=== PATIENT | male | born 1990 | race Caucasian/White ===

== ENCOUNTER 2016-03-18 18:01 | Emergency (ER) | payer OTHER ==
--- NOTE | 2016-03-18 20:40 | ED ORDER SUMMARY ---
..... Patient: ALKA ATKINS OrderSheet [facility] VisitID: [id number] [address] [place] [address] 25y, M Registration Date/Time: 03/18/2016 ORDER SHEET Weight: 72.5 kg (stated) Allergies: No Known Drug Allergy GENERAL ORDERS: Hand 3 or 4V Right Urgent (19:43 03/18/2016 Kiana Mcguire per protocol) (19:55 [facility]) MEDICATION ORDERS: Bactrim DS PO (Tablet 800-160 mg) 2 tabs (NOW) (20:35 03/18/2016 Chantale COLES) (Cancelled: Other23:41 Nai Mcguire) IV FLUIDS: ORDER SHEET NOTES: [Electronically signed by Heladio Del Rosario R.N. (23:44 03/18/2016)] [Electronically signed by Home Clarke MD (08:56 03/23/2016)] [Electronically locked/signed by Heladio Del Rosario R.N. (23:44 03/18/2016)]
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
--- NOTE | 2016-03-18 20:40 | ED CLINICAL REPORT ---
Clinical Report - Physicians/Mid Levels [facility] [address] [place] [address] 03/18/2016 18:04 Patient: ALKA ATKINS Time Seen: 20:33. Arrived- By private vehicle. Historian- patient. HISTORY OF PRESENT ILLNESS Chief Complaint: Injury to the right hand. The injury happened yesterday. The patient sustained a severe direct blow. Occurred at home. ( he was working on a car and struck his hand against the inside of the wheel well when trying to turn around). Patient is experiencing severe pain. No other injury. REVIEW OF SYSTEMS No chills, fever, sweats, calf pain or chest pain. No cough, difficulty breathing, pedal edema, palpitations or abdominal pain. No constipation, diarrhea, nausea, vomiting or urinary problems. All systems otherwise negative, except as recorded above. PAST HISTORY The patient's dominant hand is the right. SOCIAL HISTORY Current every day heavy tobacco smoker (cigarette)- less than 1 pack per day. Occasional alcohol use. FAMILY HISTORY No significant family medical history. ADDITIONAL NOTES The nursing notes have been reviewed. PHYSICAL EXAM Vital Signs: 03/18/2016 19:37 BP: 141/91. HR: 96. RR: 16. O2 saturation: 100%. Temp: 98.2 F. Pain level now: 9/10. Have been reviewed. Appearance: Alert. No acute distress. Head: Head atraumatic. Eyes: Pupils equal, round and reactive to light. ENT: Pharynx normal. Neck: Neck supple. CVS: Heart sounds normal. Respiratory: Breath sounds normal. Abdomen: No visible injury. Back: Normal inspection. Skin: Skin warm and dry. Medium area of cellulitis with tenderness, erythema and warmth to right hand. Extremities: Dorsal right hand: mild erythema, moderate tenderness and swelling and multiple deep abrasions (R hand has x3 small 1cm deep abrasions to knuckles, 3, 4 & 5 with erythema, warmth, swelling, tenderness, no discharge). No wrist injury. Neuro, Vascular and Tendons: Vascular status intact. Sensation intact. Motor intact. Tendon function intact. Neuro: No motor deficit. No sensory deficit. PROGRESS AND PROCEDURES Course of Care: Patient is stable. Patient/family counseled. Old medical records reviewed. Disposition: Discharged. Condition: stable. CLINICAL IMPRESSION Multiple deep abrasions to the right hand. Delayed treatment. Infection present. Contusion to the right hand. Cellulitis of the right hand. INSTRUCTIONS Protect wound and keep wound area clean. Change dressing twice daily. You may wash wounds briefly, then dry. Apply neosporin twice daily. No driving or operating machinery while taking medication. Warnings: COMPLICATIONS: Complications from this condition include: possible infection. Future problems may include infection, scarring and pain. It is important to follow up with a physician for further evaluation and treatment. INFECTION: Watch for signs of infection (increasing heat and redness, pus-like drainage, swelling, or increased pain). Return or see your doctor if these signs occur. GENERAL WARNINGS: Return or contact your physician immediately if your condition worsens or changes unexpectedly, if not improving as expected, or if other problems arise. Prescription Medications: Ultram 50 mg: take 1-2 orally every 6 hours as needed for pain. Dispense fifteen (15). No refills. Substitution is permissible. Bactrim DS 800 mg / 160 mg: take 2 tablets orally for 10 days. No refill. Substitution is permissible. (38 pills) Follow-up: Return to the emergency department tomorrow for wound check. Understanding of the discharge instructions verbalized by patient. (Electronically signed by Home Clarke MD 03/23/2016 8:56)
--- NOTE | 2016-03-18 20:40 | ED ORDER SUMMARY ---
..... Patient: ALKA ATKINS OrderSheet [facility] VisitID: [id number] [address] [place] [address] 25y, M Registration Date/Time: 03/18/2016 ORDER SHEET Weight: 72.5 kg (stated) Allergies: No Known Drug Allergy GENERAL ORDERS: Hand 3 or 4V Right Urgent (19:43 03/18/2016 Kiana Mcguire per protocol) (19:55 [facility]) MEDICATION ORDERS: Bactrim DS PO (Tablet 800-160 mg) 2 tabs (NOW) (20:35 03/18/2016 Chantale COLES) (Cancelled: Other23:41 Nai Mcguire) IV FLUIDS: ORDER SHEET NOTES: [Electronically signed by Heladio Del Rosario R.N. (23:44 03/18/2016)] [Electronically signed by Home Clarke MD (08:56 03/23/2016)] [Electronically locked/signed by Heladio Del Rosario R.N. (23:44 03/18/2016)]
--- NOTE | 2016-03-18 21:23 | DIAGNOSTIC IMAGING REPORT ---
PROCEDURE: XR HAND 3 OR 4 VIEWS - RIGHT INDICATION: TRAUMA/INJURY TECHNIQUE: Four views. COMPARISON: None. FINDINGS: Moderate soft tissue swelling this soft tissue injury over the dorsum of the right hand. Osseous structures and joint spaces are normal. IMPRESSION: 1. Soft tissue injury and swelling over the dorsum of the right hand. 2. Otherwise negative right hand.
--- NOTE | 2016-03-23 08:56 | ED MAR SUMMARY ---
..... Medication Administration Record [facility] [address] [place], [place] [id number] Patient: ALKA ATKINS Visit ID: [id number] 25y, M Weight: 72.5 kg Height/Length: 71 in BMI: 22.3 ALLERGIES: No Known Drug Allergy
--- NOTE | 2016-03-23 08:56 | ED MED RECONCILIATION SUMMARY ---
Patient: ALKA ATKINS Medication Reconciliation Report [facility] VisitID: [id number] [place] [address] 25y, M Registration Date/Time: 03/18/2016 Weight: 72.5 kg Height/Length: 71 in. BMI: 22.3 ALLERGIES: No Known Drug Allergy The patient's Home Medications are listed below: NONE. The source(s) of the original Home Medication information: patient The following Medications were given to the patient in the Emergency Department: None. The following Medications were prescribed to the patient: Ultram 50 mg: take 1-2 orally every 6 hours as needed for pain. Dispense fifteen (15). No refills. Substitution is permissible. -- Home Clarke MD Bactrim DS 800 mg / 160 mg: take 2 tablets orally for 10 days. No refill. Substitution is permissible.(38 pills) -- Home Clarke MD
--- NOTE | 2016-03-23 08:56 | ED MED RECONCILIATION SUMMARY ---
Patient: ALKA ATKINS Medication Reconciliation Report [facility] VisitID: [id number] [place] [address] 25y, M Registration Date/Time: 03/18/2016 Weight: 72.5 kg Height/Length: 71 in. BMI: 22.3 ALLERGIES: No Known Drug Allergy The patient's Home Medications are listed below: NONE. The source(s) of the original Home Medication information: patient The following Medications were given to the patient in the Emergency Department: None. The following Medications were prescribed to the patient: Ultram 50 mg: take 1-2 orally every 6 hours as needed for pain. Dispense fifteen (15). No refills. Substitution is permissible. -- Home Clarke MD Bactrim DS 800 mg / 160 mg: take 2 tablets orally for 10 days. No refill. Substitution is permissible.(38 pills) -- Home Clarke MD
--- NOTE | 2016-03-23 08:56 | ED DISCHARGE INSTRUCTIONS ---
Patient: ALKA ATKINS General Instructions [facility] VisitID: [id number] [place] [address] 25y, M Registration Date/Time: 03/18/2016 Multiple deep abrasions to the right hand. Delayed treatment. Infection present. Contusion to the right hand. Cellulitis of the right hand. INSTRUCTIONS Protect wound and keep wound area clean. Change dressing twice daily. You may wash wounds briefly, then dry. Apply neosporin twice daily. No driving or operating machinery while taking medication. Warnings: COMPLICATIONS: Complications from this condition include: possible infection. Future problems may include infection, scarring and pain. It is important to follow up with a physician for further evaluation and treatment. INFECTION: Watch for signs of infection (increasing heat and redness, pus-like drainage, swelling, or increased pain). Return or see your doctor if these signs occur. GENERAL WARNINGS: Return or contact your physician immediately if your condition worsens or changes unexpectedly, if not improving as expected, or if other problems arise. Prescription Medications: Ultram 50 mg: take 1-2 orally every 6 hours as needed for pain. Dispense fifteen (15). No refills. Substitution is permissible. Bactrim DS 800 mg / 160 mg: take 2 tablets orally for 10 days. No refill. Substitution is permissible. (38 pills) Follow-up: Return to the emergency department tomorrow for wound check. Understanding of the discharge instructions verbalized by patient. ADDITIONAL INFORMATION Abrasions Abrasions are skin scrapes. Their treatment depends on how large and deep the abrasion is. Home Care: If you were given a bandage, change it once a day. If your bandage sticks to the wound, soak it in warm water until it loosens. Wash the area with soap and water to remove all the cream/ointment. You may do this in a sink, under a tub faucet or shower. Rinse off the soap and pat dry with a clean towel. Reapply cream/ointment according to your doctor's instructions. This will prevent infection and help prevent the bandage from sticking. Cover the wound with a fresh non-stick bandage (Telfa). Repeat steps 1 to 4 daily, or as directed by your doctor. If the bandage becomes wet or dirty, change it as soon as possible. You may use acetaminophen (Tylenol) or ibuprofen (Motrin, Advil) to control pain, unless another pain medicine was prescribed. [ NOTE : If you have chronic liver or kidney disease or ever had a stomach ulcer or GI bleeding, talk with your doctor before using these medicines.] Do not use ibuprofen in children under six months of age. Follow Up with your physician or this facility as directed by our staff. Most skin wounds heal within ten days. However, an infection may occur despite proper treatment. Therefore, look for the early signs of infection listed below. Get Prompt Medical Attention if any of the following occur: Increasing pain in the wound Increasing redness or swelling Pus coming from the wound Fever of 100.4F (38C) or higher, or as directed by your healthcare provider Contusion: Hand You have a CONTUSION of your hand. This causes local pain, swelling and sometimes bruising. There are no broken bones. This injury takes from a few days to a few weeks to heal. Home Care: 1) Keep your arm elevated to reduce pain and swelling. This is very important during the first 48 hours. 2) Apply an ice pack (ice cubes in a plastic bag, wrapped in a towel) over the injured area for 20 minutes every 1-2 hours the first day. You should continue with ice packs 3-4 times a day for the next two days. Continue the use of ice packs for relief of pain and swelling as needed. 3) You may use acetaminophen (Tylenol) or ibuprofen (Motrin, Advil) to control pain, unless another pain medicine was prescribed. [ NOTE : If you have chronic liver or kidney disease or ever had a stomach ulcer or GI bleeding, talk with your doctor before using these medicines.] Follow Up with your doctor or this facility if you are not starting to improve within the next THREE days. [NOTE: If X-rays were taken, they will be reviewed by a radiologist. You will be notified of any new findings that may affect your care.] Get Prompt Medical Attention if any of the following occur: -- Pain or swelling increases -- Redness, warmth or drainage -- Hand or fingers becomes cold, blue, numb or tingly Cellulitis You have an infection of the skin known as cellulitis. This usually starts with a scrape, cut, insect bite, blister or other opening in the skin which becomes infected. This is a serious condition. It must be watched closely to be sure the infection is not spreading. With antibiotic treatment, the size of the red area will gradually shrink in size until the skin returns to normal. This will take 7-10 days. The red area should never increase in size once the antibiotic medicine has been started. Occasionally, an infection will be resistant to one antibiotic and another one will have to be used. Home Care: 1) Limit the use of the affected part, since excess movement can cause the infection to spread. 2) If the infection is on your leg, walk as little as possible during the first few days of the treatment. Keep your leg elevated while sitting. This will reduce swelling. 3) Take all of the antibiotic medicine exactly as directed until it is gone. Be careful not to miss any doses, especially during the first seven days. Follow Up with your doctor or this facility as directed. Check the infected area daily for the warning signs listed below. Get Prompt Medical Attention if any of the following occur: -- Spreading area of redness -- Increasing swelling or pain -- Appearance of pus or drainage -- Fever over 100.4 F (38.0 C) oral, or over 101.4 F (38.6 C) rectal, after two days on antibiotics Abrasions Abrasions are skin scrapes. Their treatment depends on how large and deep the abrasion is. Home Care: If you were given a bandage, change it once a day. If your bandage sticks to the wound, soak it in warm water until it loosens. Wash the area with soap and water to remove all the cream/ointment. You may do this in a sink, under a tub faucet or shower. Rinse off the soap and pat dry with a clean towel. Reapply cream/ointment according to your doctor's instructions. This will prevent infection and help prevent the bandage from sticking. Cover the wound with a fresh non-stick bandage (Telfa). Repeat steps 1 to 4 daily, or as directed by your doctor. If the bandage becomes wet or dirty, change it as soon as possible. You may use acetaminophen (Tylenol) or ibuprofen (Motrin, Advil) to control pain, unless another pain medicine was prescribed. [ NOTE : If you have chronic liver or kidney disease or ever had a stomach ulcer or GI bleeding, talk with your doctor before using these medicines.] Do not use ibuprofen in children under six months of age. Follow Up with your physician or this facility as directed by our staff. Most skin wounds heal within ten days. However, an infection may occur despite proper treatment. Therefore, look for the early signs of infection listed below. Get Prompt Medical Attention if any of the following occur: Increasing pain in the wound Increasing redness or swelling Pus coming from the wound Fever of 100.4F (38C) or higher, or as directed by your healthcare provider Tramadol Hydrochloride Oral tablet What is this medicine? TRAMADOL (TRA ma dole) is a pain reliever. It is used to treat moderate to severe pain in adults. How should I use this medicine? Take this medicine by mouth with a full glass of water. Follow the directions on the prescription label. If the medicine upsets your stomach, take it with food or milk. Do not take more medicine than you are told to take. Talk to your validation specialist regarding the use of this medicine in children. Special care may be needed. What side effects may I notice from receiving this medicine? Side effects that you should report to your doctor or health congregational care pastor as soon as possible: allergic reactions like skin rash, itching or hives, swelling of the face, lips, or tongue breathing difficulties, wheezing confusion itching light headedness or fainting spells redness, blistering, peeling or loosening of the skin, including inside the mouth seizures Side effects that usually do not require medical attention (report to your doctor or health congregational care pastor if they continue or are bothersome): constipation dizziness drowsiness headache nausea, vomiting What may interact with this medicine? Do not take this medicine with any of the following medications: MAOIs like Carbex, Eldepryl, Marplan, Nardil, and Parnate This medicine may also interact with the following medications: alcohol or medicines that contain alcohol antihistamines benzodiazepines bupropion carbamazepine or oxcarbazepine clozapine cyclobenzaprine digoxin furazolidone linezolid medicines for depression, anxiety, or psychotic disturbances medicines for migraine headache like almotriptan, eletriptan, frovatriptan, naratriptan, rizatriptan, sumatriptan, zolmitriptan medicines for pain like pentazocine, buprenorphine, butorphanol, meperidine, nalbuphine, and propoxyphene medicines for sleep muscle relaxants naltrexone phenobarbital phenothiazines like perphenazine, thioridazine, chlorpromazine, mesoridazine, fluphenazine, prochlorperazine, promazine, and trifluoperazine procarbazine warfarin What if I miss a dose? If you miss a dose, take it as soon as you can. If it is almost time for your next dose, take only that dose. Do not take double or extra doses. Where should I keep my medicine? Keep out of the reach of children. Store at room temperature between 15 and 30 degrees C (59 and 86 degrees F). Keep container tightly closed. Throw away any unused medicine after the expiration date. What should I tell my health care provider before I take this medicine? They need to know if you have any of these conditions: brain tumor depression drug abuse or addiction head injury if you frequently drink alcohol containing drinks kidney disease or trouble passing urine liver disease lung disease, asthma, or breathing problems seizures or epilepsy suicidal thoughts, plans, or attempt; a previous suicide attempt by you or a family member an unusual or allergic reaction to tramadol, codeine, other medicines, foods, dyes, or preservatives or trying to get breast-feeding What should I watch for while using this medicine? Tell your doctor or health congregational care pastor if your pain does not go away, if it gets worse, or if you have new or a different type of pain. You may develop tolerance to the medicine. Tolerance means that you will need a higher dose of the medicine for pain relief. Tolerance is normal and is expected if you take this medicine for a long time. Do not suddenly stop taking your medicine because you may develop a severe reaction. Your body becomes used to the medicine. This does NOT mean you are addicted. Addiction is a behavior related to getting and using a drug for a non-medical reason. If you have pain, you have a medical reason to take pain medicine. Your doctor will tell you how much medicine to take. If your doctor wants you to stop the medicine, the dose will be slowly lowered over time to avoid any side effects. You may get drowsy or dizzy. Do not drive, use machinery, or do anything that needs mental alertness until you know how this medicine affects you. Do not stand or sit up quickly, especially if you are an older patient. This reduces the risk of dizzy or fainting spells. Alcohol can increase or decrease the effects of this medicine. Avoid alcoholic drinks. You may have constipation. Try to have a bowel movement at least every 2 to 3 days. If you do not have a bowel movement for 3 days, call your doctor or health congregational care pastor. Your mouth may get dry. Chewing sugarless gum or sucking hard candy, and drinking plenty of water may help. Contact your doctor if the problem does not go away or is severe. Sulfamethoxazole, Trimethoprim Oral tablet What is this medicine? SULFAMETHOXAZOLE; TRIMETHOPRIM or SMX-TMP (suhl fuh meth OK guicho zohl; trye METH oh prim) is a combination of a sulfonamide antibiotic and a second antibiotic, trimethoprim. It is used to treat or prevent certain kinds of bacterial infections. It will not work for colds, flu, or other viral infections. How should I use this medicine? Take this medicine by mouth with a full glass of water. Follow the directions on the prescription label. Take your medicine at regular intervals. Do not take it more often than directed. Do not skip doses or stop your medicine early. Talk to your validation specialist regarding the use of this medicine in children. Special care may be needed. This medicine has been used in children as young as 2 months of age. What side effects may I notice from receiving this medicine? Side effects that you should report to your doctor or health congregational care pastor as soon as possible: allergic reactions like skin rash or hives, swelling of the face, lips, or tongue breathing problems fever or chills, sore throat irregular heartbeat, chest pain joint or muscle pain pain or difficulty passing urine red pinpoint spots on skin redness, blistering, peeling or loosening of the skin, including inside the mouth unusual bleeding or bruising unusually weak or tired yellowing of the eyes or skin Side effects that usually do not require medical attention (report to your doctor or health congregational care pastor if they continue or are bothersome): diarrhea dizziness headache loss of appetite nausea, vomiting nervousness What may interact with this medicine? Do not take this medicine with any of the following medications: aminobenzoate potassium dofetilide metronidazole This medicine may also interact with the following medications: ABDOUL inhibitors like benazepril, enalapril, lisinopril, and ramipril cyclosporine digoxin diuretics indomethacin medicines for diabetes methenamine methotrexate phenytoin potassium supplements pyrimethamine sulfinpyrazone tricyclic antidepressants warfarin What if I miss a dose? If you miss a dose, take it as soon as you can. If it is almost time for your next dose, take only that dose. Do not take double or extra doses. Where should I keep my medicine? Keep out of the reach of children. Store at room temperature between 20 to 25 degrees C (68 to 77 degrees F). Protect from light. Throw away any unused medicine after the expiration date. What should I tell my health care provider before I take this medicine? They need to know if you have any of these conditions: anemia asthma being treated with anticonvulsants if you frequently drink alcohol containing drinks kidney disease liver disease low level of folic acid or [id number] dehydrogenase poor nutrition or malabsorption porphyria severe allergies thyroid disorder an unusual or allergic reaction to sulfamethoxazole, trimethoprim, sulfa drugs, other medicines, foods, dyes, or preservatives or trying to get breast-feeding What should I watch for while using this medicine? Tell your doctor or health congregational care pastor if your symptoms do not improve. Drink several glasses of water a day to reduce the risk of kidney problems. Do not treat diarrhea with over the counter products. Contact your doctor if you have diarrhea that lasts more than 2 days or if it is severe and watery. This medicine can make you more sensitive to the sun. Keep out of the sun. If you cannot avoid being in the sun, wear protective clothing and use a sunscreen. Do not use sun lamps or tanning beds/booths. You have been given the following additional information: Abrasion Contusion, Hand Cellulitis Abrasion Tramadol Hydrochloride Oral tablet Sulfamethoxazole, Trimethoprim Oral tablet No driving or operating machinery while taking medication. (Electronically signed by Home Clarke MD 03/23/2016 8:56)
--- NOTE | 2016-03-23 08:56 | ED MAR SUMMARY ---
..... Medication Administration Record [facility] [address] [place], [place] [id number] Patient: ALKA ATKINS Visit ID: [id number] 25y, M Weight: 72.5 kg Height/Length: 71 in BMI: 22.3 ALLERGIES: No Known Drug Allergy
== END 2016-03-18 20:45 | disposition home or self-care (01) ==
LOC: ED SRH 18:01
DX: S60.221A Contusion of right hand, initial encounter (principal); S60.511A Abrasion of right hand, initial encounter; L03.113 Cellulitis of right upper limb; W22.8XXA Striking against or struck by other objects, initial encounter; Y93.89 Activity, other specified; Y92.009 Unspecified place in unspecified non-institutional (private) residence as the place of occurrence of the external cause; Y99.9 Unspecified external cause status; F17.210 Nicotine dependence, cigarettes, uncomplicated

== ENCOUNTER 2016-03-19 10:28 | Emergency (ER) | payer OTHER ==
--- NOTE | 2016-03-19 12:11 | ED ORDER SUMMARY ---
..... Patient: ALKA ATKINS OrderSheet [facility] VisitID: [id number] [address] [place] [address] 25y, M Registration Date/Time: 03/19/2016 ORDER SHEET Weight: 68.0 kg (stated) Allergies: No Known Drug Allergy GENERAL ORDERS: Dress Wounds (12:11 03/19/2016 Brando A.R.N.P.) (13:00 Magdalena Mcguire) MEDICATION ORDERS: IV FLUIDS: ORDER SHEET NOTES: [Electronically signed by Teena MarquezNJenPJen (12:47 03/19/2016)] [Electronically signed by Elicia Callaway R.N. (13:00 03/19/2016)] [Electronically locked/signed by Elicia Callaway R.N. (13:00 03/19/2016)]
--- NOTE | 2016-03-19 12:11 | ED CLINICAL REPORT ---
Clinical Report - Physicians/Mid Levels [facility] [address] [place] [address] 03/19/2016 10:29 Patient: ALKA ATKINS Time Seen: 12:05; initial patient contact, initial documentation, patient care assumed. Arrived- By private vehicle. Historian- patient. HISTORY OF PRESENT ILLNESS Chief Complaint: WOUND RECHECK. Treated in emergency department yesterday. Prescription antibiotic- Bactrim. Previous emergency department treatment: prescription antibiotic given and given for antibiotic. (did not get it filled). Prescription not filled. Not taking medication as prescribed. Patient did not finish medication. The patient has no complaints since the procedure was performed. (states it feels the same R handed was working on car and scraped hand up, no new injury). REVIEW OF SYSTEMS No fever. All systems otherwise negative, except as recorded above. PAST HISTORY See nurses notes. PROBLEMS: Cellulitis. Contusion. Abrasion(s). --10:56 Claudette Gongora RJenN. ADDITIONAL SURGERIES: Foot surgery . --10:56 Claudette Gongora RJenN. Tetanus immunization status is up-to-date. SOCIAL HISTORY Light tobacco smoker. Occasional alcohol use. No drug use. No recent travel. Is a local resident. FAMILY HISTORY No significant family medical history. ADDITIONAL NOTES The nursing notes have been reviewed with agreement regarding the chief complaint, HPI, ROS, PMH and patient medications and allergies. PHYSICAL EXAM Vital Signs: 03/19/2016 11:00 BP: 150/89. HR: 101. RR: 18. O2 saturation: 100%. Temp: 97.9 F. Pain level now: 1010. Have been reviewed as normal and appear to be correct. Appearance: Alert. Oriented X3. No acute distress. Skin: Erythema. Tenderness. Wound does not appear to be healing. Warmth. Infection. (R hand has x3 small 1cm lacs to knuckles, 3, 4&5 with erythema, warmth, swelling, tenderness, no dc only oozing clear fluid, mild wound dehiscence). Neuro, Vascular and Tendons: Sensation intact. No tendon injury. No vascular compromise. Neuro: Oriented X 3. No motor deficit. No sensory deficit. PROGRESS AND PROCEDURES Patient counseled in person regarding the patient's stable condition and diagnosis. 12:11. Differential Diagnosis: Other possible considerations: wound recheck, lac infected, cellulitis. Above considerations are based on history and physical exam. Differential diagnosis was discussed with patient. Disposition: Discharged home in good and improved condition (12:11). Condition: good and stable. CLINICAL IMPRESSION Wound check INSTRUCTIONS Protect wound and keep wound area clean. Soak in warm soapy water. Apply bacitracin twice daily. (need to get antibiotics filled and take as directed and discussed). Warnings: GENERAL WARNINGS: Return or contact your physician immediately if your condition worsens or changes unexpectedly, if not improving as expected, or if other problems arise. Specifically return if problem worsens. Follow-up: Follow up with your doctor in about two days even if well and for wound check. Summary of care provided to patient. Understanding of the discharge instructions verbalized by patient. (Electronically signed by Teena Marquez A.R.N.P. 03/19/2016 12:47)
--- NOTE | 2016-03-19 12:11 | ED NURSING NOTES ---
Clinical Report - Nurses [facility] [address] [place] [address] 03/19/2016 10:29 Patient: ALKA ATKINS TRIAGE Triage time 10:54. Acuity: LEVEL 5. Chief Complaint: RECHECK OF WOUND and (recheck). Alert. --10:57 Claudette Gongora R.N. 11:00 03/19/16. BP: 150/89. HR: 101. RR: 18. O2 saturation: 100%. Temp: 97.9 F. Pain level now: 12/20. --11:01 Claudette Gongora R.N. Weight: 68 kg stated. Height/Length: 71 inches Per Patient. BMI: 20.9. --10:56 Claudette Gongora R.N. Medications Bactrim DS Oral 1 tablet, 2x a day. --12:59 Elicia Callaway R.N. Ultram Oral 50 mg, 4x a day as needed. --12:59 Elicia Callaway R.N. Allergies No Known Drug Allergy. --10:57 Claudette Gongora R.N. History Arrived by private vehicle. Historian: patient. Primary physician (none). Location: right hand. Previous treatment: Previously seen in this ED yesterday. Prescription given for antibiotic. PAST MEDICAL HX: Tetanus status: up-to-date. SOCIAL HX: Light tobacco smoker (cigarette)- less than 1/2 a pack per day. Occasional alcohol use. No drug use. The patient was exposed to MRSA. FALL RISK ASSESSMENT: Fall risk assessment completed. No fall risk identified. --10:57 Claudette Gongora R.N. PROBLEMS: Cellulitis. Contusion. Abrasion(s). --10:56 Claudette Gongora R.N. ADDITIONAL SURGERIES: Foot surgery . --10:56 Claudette Gongora R.N. Interventions ID band on patient. To room. --10:57 Claudette Gongora R.N. PHYSICAL ASSESSMENT 10:50. Ambulatory to room. GENERAL / NEURO / PSYCH: Alert. Oriented X 4. Patient's nutrition appears within normal limits. Appears in pain. EXTREMITIES: Limited ROM present. Capillary refill is less than 2 seconds in the extremities. SKIN: Skin is warm. ( redness, swelling noted, redness has not progressed passed ink marked on hand last night). --12:58 Elicia Callaway R.N. NURSING PROGRESS NOTES 11:11 03/19/16. Patient gowned. Reassurance given. Patient identifiers checked. Call light placed in reach. Side rails up. Bed placed in lowest position. Patient ready for evaluation- chart flagged. --11:11 Elicia Callaway R.N. 12:20. Applied clean bulky dressing consisting of Tegaderm and 4x4 gauze, following the application of antibiotic ointment. Secured with tape and kerlix (done by Cary Rosado facility environmental technician). --12:57 Elicia Callaway R.N. DISPOSITION / DISCHARGE 12:30. Condition at departure: unchanged and stable. No learning barriers present. Discharge instructions provided and reviewed with the patient. Reviewed medication(s) (continue bactrim, vicodin). Treatments reviewed (warm soaks BID, watch for worsening infection). Patient verbalized understanding. Written instructions provided in Surinamese. The patient was discharged home and accompanied by right of way agent. He left the Emergency Department ambulatory and via private vehicle. Endless Track Vehicle Supervisor driving. --12:56 Elicia Callaway R.N. 12:30 03/19/16. BP: 142/80. HR: 84. RR: 18. O2 saturation: 100%. Temp: deferred. Pain level now: 10/20. --12:56 Elicia Callaway R.N. Locked/Released at 03/19/2016 13:00 by Elicia Callaway R.N.
--- NOTE | 2016-03-19 12:11 | ED ORDER SUMMARY ---
..... Patient: ALKA ATKINS OrderSheet [facility] VisitID: [id number] [address] [place] [address] 25y, M Registration Date/Time: 03/19/2016 ORDER SHEET Weight: 68.0 kg (stated) Allergies: No Known Drug Allergy GENERAL ORDERS: Dress Wounds (12:11 03/19/2016 Brando A.R.N.P.) (13:00 Magdalena Mcguire) MEDICATION ORDERS: IV FLUIDS: ORDER SHEET NOTES: [Electronically signed by Teena MarquezNJenPJen (12:47 03/19/2016)] [Electronically signed by Elicia Callaway R.N. (13:00 03/19/2016)] [Electronically locked/signed by Elicia Callaway R.N. (13:00 03/19/2016)]
--- NOTE | 2016-03-19 12:11 | ED NURSING NOTES ---
Clinical Report - Nurses [facility] [address] [place] [address] 03/19/2016 10:29 Patient: ALKA ATKINS TRIAGE Triage time 10:54. Acuity: LEVEL 5. Chief Complaint: RECHECK OF WOUND and (recheck). Alert. --10:57 Claudette Gongora R.N. 11:00 03/19/16. BP: 150/89. HR: 101. RR: 18. O2 saturation: 100%. Temp: 97.9 F. Pain level now: 12/20. --11:01 Claudette Gongora R.N. Weight: 68 kg stated. Height/Length: 71 inches Per Patient. BMI: 20.9. --10:56 Claudette Gongora R.N. Medications Bactrim DS Oral 1 tablet, 2x a day. --12:59 Elicia Callaway R.N. Ultram Oral 50 mg, 4x a day as needed. --12:59 Elicia Callaway R.N. Allergies No Known Drug Allergy. --10:57 Claudette Gongora R.N. History Arrived by private vehicle. Historian: patient. Primary physician (none). Location: right hand. Previous treatment: Previously seen in this ED yesterday. Prescription given for antibiotic. PAST MEDICAL HX: Tetanus status: up-to-date. SOCIAL HX: Light tobacco smoker (cigarette)- less than 1/2 a pack per day. Occasional alcohol use. No drug use. The patient was exposed to MRSA. FALL RISK ASSESSMENT: Fall risk assessment completed. No fall risk identified. --10:57 Claudette Gongora R.N. PROBLEMS: Cellulitis. Contusion. Abrasion(s). --10:56 Claudette Gongora R.N. ADDITIONAL SURGERIES: Foot surgery . --10:56 Claudette Gongora R.N. Interventions ID band on patient. To room. --10:57 Claudette Gongora R.N. PHYSICAL ASSESSMENT 10:50. Ambulatory to room. GENERAL / NEURO / PSYCH: Alert. Oriented X 4. Patient's nutrition appears within normal limits. Appears in pain. EXTREMITIES: Limited ROM present. Capillary refill is less than 2 seconds in the extremities. SKIN: Skin is warm. ( redness, swelling noted, redness has not progressed passed ink marked on hand last night). --12:58 Elicia Callaway R.N. NURSING PROGRESS NOTES 11:11 03/19/16. Patient gowned. Reassurance given. Patient identifiers checked. Call light placed in reach. Side rails up. Bed placed in lowest position. Patient ready for evaluation- chart flagged. --11:11 Elicia Callaway R.N. 12:20. Applied clean bulky dressing consisting of Tegaderm and 4x4 gauze, following the application of antibiotic ointment. Secured with tape and kerlix (done by Cary Rosado surgical instrument technician). --12:57 Elicia Callaway R.N. DISPOSITION / DISCHARGE 12:30. Condition at departure: unchanged and stable. No learning barriers present. Discharge instructions provided and reviewed with the patient. Reviewed medication(s) (continue bactrim, vicodin). Treatments reviewed (warm soaks BID, watch for worsening infection). Patient verbalized understanding. Written instructions provided in [place]ib[place]ian. The patient was discharged home and accompanied by automotive tire worker. He left the Emergency Department ambulatory and via private vehicle. Dragline Mechanic driving. --12:56 Elicia Callaway R.N. 12:30 03/19/16. BP: 142/80. HR: 84. RR: 18. O2 saturation: 100%. Temp: deferred. Pain level now: 10/20. --12:56 Elicia Callaway R.N. Locked/Released at 03/19/2016 13:00 by Elicia Callaway R.N.
--- NOTE | 2016-03-19 12:11 | ED CLINICAL REPORT ---
Clinical Report - Physicians/Mid Levels [facility] [address] [place] [address] 03/19/2016 10:29 Patient: ALKA ATKINS Time Seen: 12:05; initial patient contact, initial documentation, patient care assumed. Arrived- By private vehicle. Historian- patient. HISTORY OF PRESENT ILLNESS Chief Complaint: WOUND RECHECK. Treated in emergency department yesterday. Prescription antibiotic- Bactrim. Previous emergency department treatment: prescription antibiotic given and given for antibiotic. (did not get it filled). Prescription not filled. Not taking medication as prescribed. Patient did not finish medication. The patient has no complaints since the procedure was performed. (states it feels the same R handed was working on car and scraped hand up, no new injury). REVIEW OF SYSTEMS No fever. All systems otherwise negative, except as recorded above. PAST HISTORY See nurses notes. PROBLEMS: Cellulitis. Contusion. Abrasion(s). --10:56 Claudette Gongora RJenN. ADDITIONAL SURGERIES: Foot surgery . --10:56 Claudette Gongora RJenN. Tetanus immunization status is up-to-date. SOCIAL HISTORY Light tobacco smoker. Occasional alcohol use. No drug use. No recent travel. Is a local resident. FAMILY HISTORY No significant family medical history. ADDITIONAL NOTES The nursing notes have been reviewed with agreement regarding the chief complaint, HPI, ROS, PMH and patient medications and allergies. PHYSICAL EXAM Vital Signs: 03/19/2016 11:00 BP: 150/89. HR: 101. RR: 18. O2 saturation: 100%. Temp: 97.9 F. Pain level now: 1010. Have been reviewed as normal and appear to be correct. Appearance: Alert. Oriented X3. No acute distress. Skin: Erythema. Tenderness. Wound does not appear to be healing. Warmth. Infection. (R hand has x3 small 1cm lacs to knuckles, 3, 4&5 with erythema, warmth, swelling, tenderness, no dc only oozing clear fluid, mild wound dehiscence). Neuro, Vascular and Tendons: Sensation intact. No tendon injury. No vascular compromise. Neuro: Oriented X 3. No motor deficit. No sensory deficit. PROGRESS AND PROCEDURES Patient counseled in person regarding the patient's stable condition and diagnosis. 12:11. Differential Diagnosis: Other possible considerations: wound recheck, lac infected, cellulitis. Above considerations are based on history and physical exam. Differential diagnosis was discussed with patient. Disposition: Discharged home in good and improved condition (12:11). Condition: good and stable. CLINICAL IMPRESSION Wound check INSTRUCTIONS Protect wound and keep wound area clean. Soak in warm soapy water. Apply bacitracin twice daily. (need to get antibiotics filled and take as directed and discussed). Warnings: GENERAL WARNINGS: Return or contact your physician immediately if your condition worsens or changes unexpectedly, if not improving as expected, or if other problems arise. Specifically return if problem worsens. Follow-up: Follow up with your doctor in about two days even if well and for wound check. Summary of care provided to patient. Understanding of the discharge instructions verbalized by patient. (Electronically signed by Teena Marquez A.R.N.P. 03/19/2016 12:47)
--- NOTE | 2016-03-19 13:01 | ED MED RECONCILIATION SUMMARY ---
Patient: ALKA ATKINS Medication Reconciliation Report [facility] VisitID: [id number] [address] [place] [address] 25y, M Registration Date/Time: 03/19/2016 Weight: 68.0 kg Height/Length: 71 in. BMI: 20.9 ALLERGIES: No Known Drug Allergy The patient's Home Medications are listed below: THE FOLLOWING MEDICATIONS NEED TO BE RECONCILED: Bactrim DS Oral 1 tablet, 2x a day Ultram Oral 50 mg, 4x a day The source(s) of the original Home Medication information: Not obtained. The following Medications were given to the patient in the Emergency Department: None. The following Medications were prescribed to the patient: None.
--- NOTE | 2016-03-19 13:01 | ED MAR SUMMARY ---
..... Medication Administration Record [facility] [address] [place], [place] [id number] Patient: ALKA ATKINS Visit ID: [id number] 25y, M Weight: 68.0 kg Height/Length: 71 in BMI: 20.9 ALLERGIES: No Known Drug Allergy
--- NOTE | 2016-03-19 13:01 | ED MAR SUMMARY ---
..... Medication Administration Record [facility] [address] [place], [place] [id number] Patient: ALKA ATKINS Visit ID: [id number] 25y, M Weight: 68.0 kg Height/Length: 71 in BMI: 20.9 ALLERGIES: No Known Drug Allergy
--- NOTE | 2016-03-19 13:01 | ED MED RECONCILIATION SUMMARY ---
Patient: ALKA ATKINS Medication Reconciliation Report [facility] VisitID: [id number] [address] [place] [address] 25y, M Registration Date/Time: 03/19/2016 Weight: 68.0 kg Height/Length: 71 in. BMI: 20.9 ALLERGIES: No Known Drug Allergy The patient's Home Medications are listed below: THE FOLLOWING MEDICATIONS NEED TO BE RECONCILED: Bactrim DS Oral 1 tablet, 2x a day Ultram Oral 50 mg, 4x a day The source(s) of the original Home Medication information: Not obtained. The following Medications were given to the patient in the Emergency Department: None. The following Medications were prescribed to the patient: None.
--- NOTE | 2016-03-19 13:01 | ED DISCHARGE INSTRUCTIONS ---
Patient: ALKA ATKINS General Instructions [facility] VisitID: [id number] [place] [address] 25y, M Registration Date/Time: 03/19/2016 Wound check INSTRUCTIONS Protect wound and keep wound area clean. Soak in warm soapy water. Apply bacitracin twice daily. (need to get antibiotics filled and take as directed and discussed). Warnings: GENERAL WARNINGS: Return or contact your physician immediately if your condition worsens or changes unexpectedly, if not improving as expected, or if other problems arise. Specifically return if problem worsens. Follow-up: Follow up with your doctor in about two days even if well and for wound check. Summary of care provided to patient. Understanding of the discharge instructions verbalized by patient. ADDITIONAL INFORMATION Laceration, Infected (Not Sutured) A laceration is a cut in the skin. Most lacerations heal within 510 days without a problem. Sometimes, even wounds that are carefully cleaned at the time of injury become infected. Because of the infection, and the amount of time that has passed since injury, the wound cannot be closed. It will heal best if left open and cleaned daily. It will seal over by growing new tissue from the sides and the bottom of the wound. Antibiotics may be prescribed. A scar will probably remain after it has healed. Home care The following guidelines will help you care for your laceration at home: Unless otherwise instructed, change the bandage twice a day for the first few days, until the drainage stops. Then change it once a day. If the bandage becomes wet, stained with wound fluid, or dirty, change it. Bandage removal and replacement: After removing the bandage, wash the area with soap and water. Use a wet cotton swab to loosen and remove any blood or crust that forms. After cleaning, keep the wound clean and dry. Talk with your doctor before applying any antibiotic ointment to the wound. Reapply a fresh bandage. You may remove the bandage to shower as usual after the first 24 hours, but do not soak the area in water (no swimming) until the sutures are removed. The doctor may prescribe an antibiotic cream or ointment to prevent infection. Do not stop taking this medication until you have finished the prescribed course or the doctor tells you to stop. The doctor may also prescribe medications for pain. Follow the doctors instructions for taking these medications.If you have chronic liver or kidney disease or ever had a stomach ulcer or GI bleeding, talk with your doctor before using these medicines. Follow-up care Follow up with your health care provider. It is important to keep your follow-up appointment to be certain that the wound is improving. When to seek medical care Get prompt medical attention if any of these occur: Increasing pain, redness, or swelling Red streaks coming from the wound Pus coming from the wound (that wasn't there before this visit) Fever of 100.4F (38C) or higher, or as directed by your health care provider You have been given the following additional information: Laceration, Infected (Not Sutured) (Electronically signed by Teena Marquez A.R.N.P. 03/19/2016 12:47)
== END 2016-03-19 12:30 | disposition home or self-care (01) ==
LOC: ED SRH 10:28
DX: Z51.89 Encounter for other specified aftercare (principal)

== ENCOUNTER 2016-03-23 08:42 | Emergency (ER) | payer OTHER ==
--- NOTE | 2016-03-23 10:37 | ED ORDER SUMMARY ---
..... Patient: ALKA ATKINS OrderSheet [facility] VisitID: [id number] [address] [place] [place] [address] 25y, M Registration Date/Time: 03/23/2016 ORDER SHEET Weight: 72.5 kg Allergies: No Known Drug Allergy GENERAL ORDERS: CBC w Diff Urgent (09:03/23/2016 Denise Murillo) (Ack 9:13 LNations ER Tech1) CMP Urgent (:03/23/2016 Denise Murillo) (Ack 9:13 LNations ER Tech1) MEDICATION ORDERS: IV FLUIDS: Clindamycin IV 600 mg/50mL (NOW) (:03/23/2016 Denise Murillo) (9:42 Suresh) IV Saline Lock (:03/23/2016 Denise Murillo) (9:41 Suresh) ORDER SHEET NOTES: [Electronically signed by Aida Rangel (11:14 03/23/2016)] [Electronically signed by Luigi Pang Dr. (22:06 03/23/2016)] [Electronically locked/signed by Aida Rangel (11:14 03/23/2016)]
--- NOTE | 2016-03-23 10:37 | ED CLINICAL REPORT ---
Clinical Report - Physicians/Mid Levels [facility] [address] [place] [address] 03/23/2016 8:42 Patient: ALKA ATKINS Time Seen: 09:02; initial patient contact. Arrived- By private vehicle. Historian- patient. RETURN VISIT: recently seen in this ED by another ED physician. Seen now for a wound check and the same problem as before. HISTORY OF PRESENT ILLNESS Chief Complaint: Injury to the right hand. The injury happened about 1 week ago. Occurred at home. The patient sustained a laceration from a blunt force. Patient is experiencing mild pain. Patient denies injury to the head or neck. ( Was seen last week, nl X ray and placed on Bactrim DS, erythema is worsening.). REVIEW OF SYSTEMS The patient sustained a laceration. He has had swelling. No tingling, numbness, weakness, foreign body or chills. No fever, nausea, vomiting or joint pain. He sustained skin laceration and has had skin rash. All systems otherwise negative, except as recorded above. PAST HISTORY Cellulitis. Contusion. Abrasion(s).' SURGERIES: Foot surgery . Medications: Tramadol HCL Oral. Bactrim DS Oral. Allergies: No Known Drug Allergy. SOCIAL HISTORY Current every day smoker. Occasional alcohol use. No drug use. ADDITIONAL NOTES The nursing notes have been reviewed with agreement regarding the chief complaint, PMH and patient medications and allergies. PHYSICAL EXAM Vital Signs: 03/23/2016 09:25 BP: 149/87. HR: 110. RR: 16. O2 saturation: 98%. Temp: 97.8 F. Have been reviewed and appear to be correct. Hypertensive. Tachycardic. Respiratory rate normal. Temperature normal. Oxygen saturation normal. Appearance: Alert. Oriented X3. No acute distress. Head: Head atraumatic. Eyes: Eyes normal inspection. ENT: Pharynx normal. CVS: Normal heart rate and rhythm. Heart sounds normal. Respiratory: No respiratory distress. Breath sounds normal. Extremities: Swelling, warmth, tenderness and erythema present. No drainage, lymphangitis or fluctuance. Dorsal right hand: moderate erythema and swelling, mild tenderness and superficial laceration of the proximal aspect of the dorsal hand. Neurovascular intact distally. No limitation of extension. No wrist injury. Extremities otherwise negative. Neuro, Vascular and Tendons: Vascular status intact. Sensation intact. Motor intact. Tendon function intact. Neuro: Oriented X 3. No motor deficit. No sensory deficit. LABS, X-RAYS, AND EKG Laboratory Tests: CBC w Diff: (TATE: 03/23/2016 09:35) ( MsgRcvd 03/23/2016 10:02) Final results Test Result Flag Units (Reference) WHITE BLOOD COUNT 11.1 K/uL (4.5-11.5) RED BLOOD COUNT 5.63 M/uL (4.50-5.90) HEMOGLOBIN 14.9 gm/dL (13.5-17.5) HEMATOCRIT 46.8 % (41.0-53.0) MEAN CELL VOLUME 83 fL (80-100) MEAN CORPUSCULAR HGB 26 pg (26-34) MEAN CORPUSCULAR HGB CONC 32 g/dL (31-37) RED CELL DISTRIBUTION WIDTH 12.9 % (11.6-14.8) PLATELET COUNT 273 K/uL (150-400) NEUTROPHIL % 74.6 % (50-75) LYMPH % 13.5 L % (25-40) MONO % 9.4 % (3-14) EOSINOPHIL % 2.0 % (0-4) BASOPHIL % 0.5 % (0-2) CMP: (TATE: 03/23/2016 09:35) ( MsgRcvd 03/23/2016 10:15) Final results Test Result Flag Units (Reference) GLUCOSE 104 mg/dL (70-110) BUN 19 H mg/dL (7-18) CREATININE 1.1 mg/dL (0.6-1.3) Estimated GFR >60 mL/min Estimated GFR- >60 mL/min Note: Persistent reduction over 3 months in eGFR<60 mL/min/1.73 m2 defines CKD. Patients with eGFR values>=60 mL/min/1.73 m2 may also have CKD if evidence ofpersistent proteinuria. Additional information may be foundat www.kidney.org. SODIUM 139 mmol/L (136-145) POTASSIUM 4.2 mmol/L (3.5-5.1) CHLORIDE 102 mmol/L (98-107) CARBON DIOXIDE 29 mmol/L (21-32) CALCIUM 9.5 mg/dL (8.5-10.1) TOTAL PROTEIN 8.3 H g/dL (6.4-8.2) ALBUMIN 4.1 g/dL (3.3-5.0) BILIRUBIN, TOTAL 0.4 mg/dL (0.0-1.0) ALKALINE PHOSPHATASE 253 H U/L (46-116) AST (SGOT) 140 H U/L (15-37) ALT (SGPT) 372 H U/L (12-78) . PROGRESS AND PROCEDURES Course of Care: 03/23/2016 09:25 BP: 149/87. HR: 110. RR: 16. O2 saturation: 98%. Temp: 97.8 F. Vital Signs: have been reviewed. Hypertensive. Tachycardic. Respiratory rate normal. Temperature normal. Oxygen saturation normal. Disposition: Discharged home in good condition. Condition: good. CLINICAL IMPRESSION Cellulitis of the right hand. Abnormal liver function test: AST/SGOT, ALT/SGPT and alkaline phosphatase. INSTRUCTIONS Limit use of your right hand until better. Your Current Medications: STOP TAKING THE FOLLOWING MEDICATIONS: Bactrim DS Oral. CONTINUE TAKING THE FOLLOWING MEDICATIONS: Tramadol HCL Oral. Prescription Medications: Bactroban 2% ointment: apply small amount to affected area three times daily until symptoms better. Dispense twenty-two (22) grams. No refills. Substitution is permissible. Clindamycin 300 mg: take 1 capsule orally every 8 hours for 7 days. No refill. Follow-up with: [facility], , , [address], , [place], [address] Follow up in two. Call for an appointment. (Electronically signed by Luigi Pang Dr. 03/23/2016 22:06)
--- NOTE | 2016-03-23 10:37 | ED ORDER SUMMARY ---
..... Patient: ALKA ATKINS OrderSheet [facility] VisitID: [id number] [address] [place] [address] 25y, M Registration Date/Time: 03/23/2016 ORDER SHEET Weight: 72.5 kg Allergies: No Known Drug Allergy GENERAL ORDERS: CBC w Diff Urgent (09:03/23/2016 Denise Murillo) (Ack 9:13 LNations ER Tech1) CMP Urgent (:03/23/2016 Denise Murillo) (Ack 9:13 LNations ER Tech1) MEDICATION ORDERS: IV FLUIDS: Clindamycin IV 600 mg/50mL (NOW) (:03/23/2016 Denise Murillo) (9:42 Suresh) IV Saline Lock (:03/23/2016 Denise Murillo) (9:41 Suresh) ORDER SHEET NOTES: [Electronically signed by Aida Rangel (11:14 03/23/2016)] [Electronically signed by Luigi Pang Dr. (22:06 03/23/2016)] [Electronically locked/signed by Aida Rangel (11:14 03/23/2016)]
--- NOTE | 2016-03-23 10:37 | ED NURSING NOTES ---
Clinical Report - Nurses [facility] [address] [place] [address] 03/23/2016 8:42 Patient: ALKA ATKINS TRIAGE Triage time 0920. Acuity: LEVEL 4. Chief Complaint: RECHECK OF WOUND. Alert. No acute distress. --09:28 Aida Ragnel 09:25 03/23/16. BP: 149/87. HR: 110. RR: 16. O2 saturation: 98%. Temp: 97.8 F. Pain level now 5/10. --09:28 Aida Rangel. Weight: 72.5 kg. Height/Length: 71 inches. BMI: 22.3. --09:24 Aida Rangel. Medications None. --09: Aida Rangel. Allergies No Known Drug Allergy. --09: Aida Rangel. History Arrived by private vehicle. Historian: patient. Location: left hand. Previous treatment: Previously seen in this ED. SOCIAL HX: Heavy tobacco smoker (cigarette)- less than 1 pack per day. Occasional alcohol use. 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 --09:28 Aida Rangel. PROBLEMS: Cellulitis. --09: Aida Rangel. ADDITIONAL SURGERIES: Foot surgery . --09: Aida Rangel. Interventions ID band on patient. To treatment room. --09:28 Aida Rangel. PHYSICAL ASSESSMENT Ambulatory to room. GENERAL / NEURO / PSYCH: Alert. Oriented X 4. Appears in no acute distress. Patient's nutrition appears within normal limits. CVS: Capillary refill is greater than 2 seconds. EXTREMITIES: Limited ROM present. Sensation intact in extremities. SKIN: Warmth. Wound dehiscence. Drainage. Tenderness. Erythema. --09:28 Aida Rangel. NURSING PROGRESS NOTES 09:41 03/23/2016 Site #1 started via IV in the left antecubital space with an 22g angiocath, with aseptic technique and good blood return; one attempt. Blood drawn: rainbow set. Labeled in the presence of the patient and sent to the lab. Saline lock flushed with 10 mL saline. --09:41 Aida Rangel 09:41 03/23/2016 Started 600 mg of Clindamycin IVPB in bag #1 50 mL; at 100 mL/hr over 30 minute(s) via site #1 via IV pump. Allergies verified and confirmed 5 rights. IV patency established. IV site checked: no pain, redness, or swelling. IV flushed thoroughly pre- and post-medication administration. --09:42 Aida Rangel 10:27 03/23/2016 Clindamycin IVPB Discontinued: bag #1 completed. Total amount infused: 50 mL. --10:27 Zurdo Phelps R.N. 11:10 03/23/2016 IV Saline Lock Drip IV Discontinued: bag #1 completed upon discharge. Total amount infused: 50 mL. --11:10 Aida Rangel 11:12 03/23/2016 Site #1 removed upon discharge. Pressure dressing applied. --11:12 Aida Rangel. DISPOSITION / DISCHARGE Condition at departure: unchanged and stable. No learning barriers present. Discharge instructions provided and reviewed with the patient. Reviewed warnings. Reviewed medication(s). Reviewed referrals. Patient verbalized understanding. Written instructions provided in Polish. The patient was discharged by the physician. He was discharged home. He left the Emergency Department ambulatory and via private vehicle. Patient driving. --11:13 Aida Rangel Departure time: 1100. --11:13 Aida Rangel 11:13 03/23/16. Pain level now 5/10. --11:13 Aida Rangel ( bacitracin applied, large bulky dressing on prior to d/c). --11:14 Aida Rangel. Locked/Released at 03/23/2016 11:14 by Aida Rangel,
--- NOTE | 2016-03-23 10:37 | ED NURSING NOTES ---
Clinical Report - Nurses [facility] [address] [place] [address] 03/23/2016 8:42 Patient: ALKA ATKINS TRIAGE Triage time 0920. Acuity: LEVEL 4. Chief Complaint: RECHECK OF WOUND. Alert. No acute distress. --09:28 Aida Rangel 09:25 03/23/16. BP: 149/87. HR: 110. RR: 16. O2 saturation: 98%. Temp: 97.8 F. Pain level now 5/10. --09:28 Aida Rangel. Weight: 72.5 kg. Height/Length: 71 inches. BMI: 22.3. --09:24 Aida Rangel. Medications None. --09: Aida Rangel. Allergies No Known Drug Allergy. --09: Aida Rangel. History Arrived by private vehicle. Historian: patient. Location: left hand. Previous treatment: Previously seen in this ED. SOCIAL HX: Heavy tobacco smoker (cigarette)- less than 1 pack per day. Occasional alcohol use. 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 --09:28 Aida Rangel. PROBLEMS: Cellulitis. --09: Aida Rangel. ADDITIONAL SURGERIES: Foot surgery . --09: Aida Rangel. Interventions ID band on patient. To treatment room. --09:28 Aida Rangel. PHYSICAL ASSESSMENT Ambulatory to room. GENERAL / NEURO / PSYCH: Alert. Oriented X 4. Appears in no acute distress. Patient's nutrition appears within normal limits. CVS: Capillary refill is greater than 2 seconds. EXTREMITIES: Limited ROM present. Sensation intact in extremities. SKIN: Warmth. Wound dehiscence. Drainage. Tenderness. Erythema. --09:28 Aida Rangel. NURSING PROGRESS NOTES 09:41 03/23/2016 Site #1 started via IV in the left antecubital space with an 22g angiocath, with aseptic technique and good blood return; one attempt. Blood drawn: rainbow set. Labeled in the presence of the patient and sent to the lab. Saline lock flushed with 10 mL saline. --09:41 Aida Rangel 09:41 03/23/2016 Started 600 mg of Clindamycin IVPB in bag #1 50 mL; at 100 mL/hr over 30 minute(s) via site #1 via IV pump. Allergies verified and confirmed 5 rights. IV patency established. IV site checked: no pain, redness, or swelling. IV flushed thoroughly pre- and post-medication administration. --09:42 Aida Rangel 10:27 03/23/2016 Clindamycin IVPB Discontinued: bag #1 completed. Total amount infused: 50 mL. --10:27 Zurdo Phelps R.N. 11:10 03/23/2016 IV Saline Lock Drip IV Discontinued: bag #1 completed upon discharge. Total amount infused: 50 mL. --11:10 Aida Rangel 11:12 03/23/2016 Site #1 removed upon discharge. Pressure dressing applied. --11:12 Aida Rangel. DISPOSITION / DISCHARGE Condition at departure: unchanged and stable. No learning barriers present. Discharge instructions provided and reviewed with the patient. Reviewed warnings. Reviewed medication(s). Reviewed referrals. Patient verbalized understanding. Written instructions provided in Cameroonian. The patient was discharged by the physician. He was discharged home. He left the Emergency Department ambulatory and via private vehicle. Patient driving. --11:13 Aida Rangel Departure time: 1100. --11:13 Aida Rangel 11:13 03/23/16. Pain level now 5/10. --11:13 Aida Rangel ( bacitracin applied, large bulky dressing on prior to d/c). --11:14 Aida Rangel. Locked/Released at 03/23/2016 11:14 by Aida Rangel,
--- NOTE | 2016-03-23 10:37 | ED CLINICAL REPORT ---
Clinical Report - Physicians/Mid Levels [facility] [address] [place] [address] 03/23/2016 8:42 Patient: ALKA ATKINS Time Seen: 09:02; initial patient contact. Arrived- By private vehicle. Historian- patient. RETURN VISIT: recently seen in this ED by another ED physician. Seen now for a wound check and the same problem as before. HISTORY OF PRESENT ILLNESS Chief Complaint: Injury to the right hand. The injury happened about 1 week ago. Occurred at home. The patient sustained a laceration from a blunt force. Patient is experiencing mild pain. Patient denies injury to the head or neck. ( Was seen last week, nl X ray and placed on Bactrim DS, erythema is worsening.). REVIEW OF SYSTEMS The patient sustained a laceration. He has had swelling. No tingling, numbness, weakness, foreign body or chills. No fever, nausea, vomiting or joint pain. He sustained skin laceration and has had skin rash. All systems otherwise negative, except as recorded above. PAST HISTORY Cellulitis. Contusion. Abrasion(s).' SURGERIES: Foot surgery . Medications: Tramadol HCL Oral. Bactrim DS Oral. Allergies: No Known Drug Allergy. SOCIAL HISTORY Current every day smoker. Occasional alcohol use. No drug use. ADDITIONAL NOTES The nursing notes have been reviewed with agreement regarding the chief complaint, PMH and patient medications and allergies. PHYSICAL EXAM Vital Signs: 03/23/2016 09:25 BP: 149/87. HR: 110. RR: 16. O2 saturation: 98%. Temp: 97.8 F. Have been reviewed and appear to be correct. Hypertensive. Tachycardic. Respiratory rate normal. Temperature normal. Oxygen saturation normal. Appearance: Alert. Oriented X3. No acute distress. Head: Head atraumatic. Eyes: Eyes normal inspection. ENT: Pharynx normal. CVS: Normal heart rate and rhythm. Heart sounds normal. Respiratory: No respiratory distress. Breath sounds normal. Extremities: Swelling, warmth, tenderness and erythema present. No drainage, lymphangitis or fluctuance. Dorsal right hand: moderate erythema and swelling, mild tenderness and superficial laceration of the proximal aspect of the dorsal hand. Neurovascular intact distally. No limitation of extension. No wrist injury. Extremities otherwise negative. Neuro, Vascular and Tendons: Vascular status intact. Sensation intact. Motor intact. Tendon function intact. Neuro: Oriented X 3. No motor deficit. No sensory deficit. LABS, X-RAYS, AND EKG Laboratory Tests: CBC w Diff: (TATE: 03/23/2016 09:35) ( MsgRcvd 03/23/2016 10:02) Final results Test Result Flag Units (Reference) WHITE BLOOD COUNT 11.1 K/uL (4.5-11.5) RED BLOOD COUNT 5.63 M/uL (4.50-5.90) HEMOGLOBIN 14.9 gm/dL (13.5-17.5) HEMATOCRIT 46.8 % (41.0-53.0) MEAN CELL VOLUME 83 fL (80-100) MEAN CORPUSCULAR HGB 26 pg (26-34) MEAN CORPUSCULAR HGB CONC 32 g/dL (31-37) RED CELL DISTRIBUTION WIDTH 12.9 % (11.6-14.8) PLATELET COUNT 273 K/uL (150-400) NEUTROPHIL % 74.6 % (50-75) LYMPH % 13.5 L % (25-40) MONO % 9.4 % (3-14) EOSINOPHIL % 2.0 % (0-4) BASOPHIL % 0.5 % (0-2) CMP: (TATE: 03/23/2016 09:35) ( MsgRcvd 03/23/2016 10:15) Final results Test Result Flag Units (Reference) GLUCOSE 104 mg/dL (70-110) BUN 19 H mg/dL (7-18) CREATININE 1.1 mg/dL (0.6-1.3) Estimated GFR >60 mL/min Estimated GFR- >60 mL/min Note: Persistent reduction over 3 months in eGFR<60 mL/min/1.73 m2 defines CKD. Patients with eGFR values>=60 mL/min/1.73 m2 may also have CKD if evidence ofpersistent proteinuria. Additional information may be foundat www.kidney.org. SODIUM 139 mmol/L (136-145) POTASSIUM 4.2 mmol/L (3.5-5.1) CHLORIDE 102 mmol/L (98-107) CARBON DIOXIDE 29 mmol/L (21-32) CALCIUM 9.5 mg/dL (8.5-10.1) TOTAL PROTEIN 8.3 H g/dL (6.4-8.2) ALBUMIN 4.1 g/dL (3.3-5.0) BILIRUBIN, TOTAL 0.4 mg/dL (0.0-1.0) ALKALINE PHOSPHATASE 253 H U/L (46-116) AST (SGOT) 140 H U/L (15-37) ALT (SGPT) 372 H U/L (12-78) . PROGRESS AND PROCEDURES Course of Care: 03/23/2016 09:25 BP: 149/87. HR: 110. RR: 16. O2 saturation: 98%. Temp: 97.8 F. Vital Signs: have been reviewed. Hypertensive. Tachycardic. Respiratory rate normal. Temperature normal. Oxygen saturation normal. Disposition: Discharged home in good condition. Condition: good. CLINICAL IMPRESSION Cellulitis of the right hand. Abnormal liver function test: AST/SGOT, ALT/SGPT and alkaline phosphatase. INSTRUCTIONS Limit use of your right hand until better. Your Current Medications: STOP TAKING THE FOLLOWING MEDICATIONS: Bactrim DS Oral. CONTINUE TAKING THE FOLLOWING MEDICATIONS: Tramadol HCL Oral. Prescription Medications: Bactroban 2% ointment: apply small amount to affected area three times daily until symptoms better. Dispense twenty-two (22) grams. No refills. Substitution is permissible. Clindamycin 300 mg: take 1 capsule orally every 8 hours for 7 days. No refill. Follow-up with: [facility], , , [address], , [place], [address] Follow up in two. Call for an appointment. (Electronically signed by Luigi Pang Dr. 03/23/2016 22:06)
--- NOTE | 2016-03-23 22:06 | ED DISCHARGE INSTRUCTIONS ---
Patient: ALKA ATKINS General Instructions [facility] VisitID: [id number] [address], [place] [address] 25y, M Registration Date/Time: 03/23/2016 Cellulitis of the right hand. Abnormal liver function test: AST/SGOT, ALT/SGPT and alkaline phosphatase. INSTRUCTIONS Limit use of your right hand until better. Your Current Medications: STOP TAKING THE FOLLOWING MEDICATIONS: Bactrim DS Oral. CONTINUE TAKING THE FOLLOWING MEDICATIONS: Tramadol HCL Oral. Prescription Medications: Bactroban 2% ointment: apply small amount to affected area three times daily until symptoms better. Dispense twenty-two (22) grams. No refills. Substitution is permissible. Clindamycin 300 mg: take 1 capsule orally every 8 hours for 7 days. No refill. Follow-up with: [facility], , , [address], , [place], [address] Follow up in two. Call for an appointment. ADDITIONAL INFORMATION Cellulitis You have an infection of the skin known as cellulitis. This usually starts with a scrape, cut, insect bite, blister or other opening in the skin which becomes infected. This is a serious condition. It must be watched closely to be sure the infection is not spreading. With antibiotic treatment, the size of the red area will gradually shrink in size until the skin returns to normal. This will take 7-10 days. The red area should never increase in size once the antibiotic medicine has been started. Occasionally, an infection will be resistant to one antibiotic and another one will have to be used. Home Care: 1) Limit the use of the affected part, since excess movement can cause the infection to spread. 2) If the infection is on your leg, walk as little as possible during the first few days of the treatment. Keep your leg elevated while sitting. This will reduce swelling. 3) Take all of the antibiotic medicine exactly as directed until it is gone. Be careful not to miss any doses, especially during the first seven days. Follow Up with your doctor or this facility as directed. Check the infected area daily for the warning signs listed below. Get Prompt Medical Attention if any of the following occur: -- Spreading area of redness -- Increasing swelling or pain -- Appearance of pus or drainage -- Fever over 100.4 F (38.0 C) oral, or over 101.4 F (38.6 C) rectal, after two days on antibiotics Mupirocin Topical ointment What is this medicine? MUPIROCIN (myoo PEER oh sin) is an antibiotic. It is used on the skin to treat skin infections. How should I use this medicine? This medicine is for external use only. Follow the directions on the prescription label. Wash your hands before and after use. Before applying, wash the affected area with mild soap and water and pat dry. Apply a small amount to the affected area and rub gently. You can cover the area with a gauze dressing. Do not get this medicine in your eyes. If you do, rinse out with plenty of cool tap water. Do not use your medicine more often than directed. Finish the full course of medicine prescribed by your doctor or health post anesthesia care unit nurse even if you think your condition is better. Do not use over large areas of burnt skin. Talk to your fiberglass bonding machine tender regarding the use of this medicine in children. Special care may be needed. What side effects may I notice from receiving this medicine? Side effects that you should report to your doctor or health post anesthesia care unit nurse as soon as possible: skin rash, redness, continued swelling, burning, itching, stinging, or pain Side effects that usually do not require medical attention (report to your doctor or health post anesthesia care unit nurse if they continue or are bothersome): dry skin, itching What may interact with this medicine? Interactions are not expected. Do not use any other skin products on the affected area without telling your doctor or health post anesthesia care unit nurse. What if I miss a dose? If you miss a dose, take it as soon as you can. If it is almost time for your next dose, take only that dose. Do not take double or extra doses. Where should I keep my medicine? Keep out of the reach of children. Store at room temperature between 20 and 25 degrees C (68 and 77 degrees F). Throw away any unused medicine after the expiration date. What should I tell my health care provider before I take this medicine? They need to know if you have any of these conditions: an unusual or allergic reaction to mupirocin, polyethylene glycol (PEG), or other topical antibiotic medicine or trying to get breast-feeding What should I watch for while using this medicine? Tell your doctor or health post anesthesia care unit nurse if your skin condition does not begin to improve within 3 to 5 days. Clindamycin Hydrochloride Oral capsule What is this medicine? CLINDAMYCIN (IRAJ Zacarias) is a lincosamide antibiotic. It is used to treat certain kinds of bacterial infections. It will not work for colds, flu, or other viral infections. How should I use this medicine? Take this medicine by mouth with a full glass of water. Follow the directions on the prescription label. You can take this medicine with food or on an empty stomach. If the medicine upsets your stomach, take it with food. Take your medicine at regular intervals. Do not take your medicine more often than directed. Take all of your medicine as directed even if you think your are better. Do not skip doses or stop your medicine early. Talk to your fiberglass bonding machine tender regarding the use of this medicine in children. Special care may be needed. What side effects may I notice from receiving this medicine? Side effects that you should report to your doctor or health post anesthesia care unit nurse as soon as possible: allergic reactions like skin rash, itching or hives, swelling of the face, lips, or tongue dark urine pain on swallowing redness, blistering, peeling or loosening of the skin, including inside the mouth unusual bleeding or bruising unusually weak or tired yellowing of eyes or skin Side effects that usually do not require medical attention (report to your doctor or health post anesthesia care unit nurse if they continue or are bothersome): diarrhea itching in the rectal or genital area joint pain nausea, vomiting stomach pain What may interact with this medicine? chloramphenicol erythromycin kaolin products What if I miss a dose? If you miss a dose, take it as soon as you can. If it is almost time for your next dose, take only that dose. Do not take double or extra doses. Where should I keep my medicine? Keep out of the reach of children. Store at room temperature between 20 and 25 degrees C (68 and 77 degrees F). Throw away any unused medicine after the expiration date. What should I tell my health care provider before I take this medicine? They need to know if you have any of these conditions: kidney disease liver disease stomach problems like colitis an unusual or allergic reaction to clindamycin, lincomycin, or other medicines, foods, dyes like tartrazine or preservatives or trying to get breast-feeding What should I watch for while using this medicine? Tell your doctor or healthcare professional if your symptoms do not start to get better or if they get worse. Do not treat diarrhea with over the counter products. Contact your doctor if you have diarrhea that lasts more than 2 days or if it is severe and watery. You have been given the following additional information: Cellulitis Mupirocin Topical ointment Clindamycin Hydrochloride Oral capsule Limit use of your right hand until better. (Electronically signed by Luigi Pang Dr. 03/23/2016 22:06)
--- NOTE | 2016-03-23 22:06 | ED DISCHARGE INSTRUCTIONS ---
Patient: ALKA ATKINS General Instructions [facility] VisitID: [id number] [address], [place] [address] 25y, M Registration Date/Time: 03/23/2016 Cellulitis of the right hand. Abnormal liver function test: AST/SGOT, ALT/SGPT and alkaline phosphatase. INSTRUCTIONS Limit use of your right hand until better. Your Current Medications: STOP TAKING THE FOLLOWING MEDICATIONS: Bactrim DS Oral. CONTINUE TAKING THE FOLLOWING MEDICATIONS: Tramadol HCL Oral. Prescription Medications: Bactroban 2% ointment: apply small amount to affected area three times daily until symptoms better. Dispense twenty-two (22) grams. No refills. Substitution is permissible. Clindamycin 300 mg: take 1 capsule orally every 8 hours for 7 days. No refill. Follow-up with: [facility], , , [address], , [place], [id number] Follow up in two. Call for an appointment. ADDITIONAL INFORMATION Cellulitis You have an infection of the skin known as cellulitis. This usually starts with a scrape, cut, insect bite, blister or other opening in the skin which becomes infected. This is a serious condition. It must be watched closely to be sure the infection is not spreading. With antibiotic treatment, the size of the red area will gradually shrink in size until the skin returns to normal. This will take 7-10 days. The red area should never increase in size once the antibiotic medicine has been started. Occasionally, an infection will be resistant to one antibiotic and another one will have to be used. Home Care: 1) Limit the use of the affected part, since excess movement can cause the infection to spread. 2) If the infection is on your leg, walk as little as possible during the first few days of the treatment. Keep your leg elevated while sitting. This will reduce swelling. 3) Take all of the antibiotic medicine exactly as directed until it is gone. Be careful not to miss any doses, especially during the first seven days. Follow Up with your doctor or this facility as directed. Check the infected area daily for the warning signs listed below. Get Prompt Medical Attention if any of the following occur: -- Spreading area of redness -- Increasing swelling or pain -- Appearance of pus or drainage -- Fever over 100.4 F (38.0 C) oral, or over 101.4 F (38.6 C) rectal, after two days on antibiotics Mupirocin Topical ointment What is this medicine? MUPIROCIN (myoo PEER oh sin) is an antibiotic. It is used on the skin to treat skin infections. How should I use this medicine? This medicine is for external use only. Follow the directions on the prescription label. Wash your hands before and after use. Before applying, wash the affected area with mild soap and water and pat dry. Apply a small amount to the affected area and rub gently. You can cover the area with a gauze dressing. Do not get this medicine in your eyes. If you do, rinse out with plenty of cool tap water. Do not use your medicine more often than directed. Finish the full course of medicine prescribed by your doctor or health youth care specialist even if you think your condition is better. Do not use over large areas of burnt skin. Talk to your submersible pilot regarding the use of this medicine in children. Special care may be needed. What side effects may I notice from receiving this medicine? Side effects that you should report to your doctor or health youth care specialist as soon as possible: skin rash, redness, continued swelling, burning, itching, stinging, or pain Side effects that usually do not require medical attention (report to your doctor or health youth care specialist if they continue or are bothersome): dry skin, itching What may interact with this medicine? Interactions are not expected. Do not use any other skin products on the affected area without telling your doctor or health youth care specialist. What if I miss a dose? If you miss a dose, take it as soon as you can. If it is almost time for your next dose, take only that dose. Do not take double or extra doses. Where should I keep my medicine? Keep out of the reach of children. Store at room temperature between 20 and 25 degrees C (68 and 77 degrees F). Throw away any unused medicine after the expiration date. What should I tell my health care provider before I take this medicine? They need to know if you have any of these conditions: an unusual or allergic reaction to mupirocin, polyethylene glycol (PEG), or other topical antibiotic medicine or trying to get breast-feeding What should I watch for while using this medicine? Tell your doctor or health youth care specialist if your skin condition does not begin to improve within 3 to 5 days. Clindamycin Hydrochloride Oral capsule What is this medicine? CLINDAMYCIN (IRAJ Zacarias) is a lincosamide antibiotic. It is used to treat certain kinds of bacterial infections. It will not work for colds, flu, or other viral infections. How should I use this medicine? Take this medicine by mouth with a full glass of water. Follow the directions on the prescription label. You can take this medicine with food or on an empty stomach. If the medicine upsets your stomach, take it with food. Take your medicine at regular intervals. Do not take your medicine more often than directed. Take all of your medicine as directed even if you think your are better. Do not skip doses or stop your medicine early. Talk to your submersible pilot regarding the use of this medicine in children. Special care may be needed. What side effects may I notice from receiving this medicine? Side effects that you should report to your doctor or health youth care specialist as soon as possible: allergic reactions like skin rash, itching or hives, swelling of the face, lips, or tongue dark urine pain on swallowing redness, blistering, peeling or loosening of the skin, including inside the mouth unusual bleeding or bruising unusually weak or tired yellowing of eyes or skin Side effects that usually do not require medical attention (report to your doctor or health youth care specialist if they continue or are bothersome): diarrhea itching in the rectal or genital area joint pain nausea, vomiting stomach pain What may interact with this medicine? chloramphenicol erythromycin kaolin products What if I miss a dose? If you miss a dose, take it as soon as you can. If it is almost time for your next dose, take only that dose. Do not take double or extra doses. Where should I keep my medicine? Keep out of the reach of children. Store at room temperature between 20 and 25 degrees C (68 and 77 degrees F). Throw away any unused medicine after the expiration date. What should I tell my health care provider before I take this medicine? They need to know if you have any of these conditions: kidney disease liver disease stomach problems like colitis an unusual or allergic reaction to clindamycin, lincomycin, or other medicines, foods, dyes like tartrazine or preservatives or trying to get breast-feeding What should I watch for while using this medicine? Tell your doctor or healthcare professional if your symptoms do not start to get better or if they get worse. Do not treat diarrhea with over the counter products. Contact your doctor if you have diarrhea that lasts more than 2 days or if it is severe and watery. You have been given the following additional information: Cellulitis Mupirocin Topical ointment Clindamycin Hydrochloride Oral capsule Limit use of your right hand until better. (Electronically signed by Luigi Pang Dr. 03/23/2016 22:06)
--- NOTE | 2016-03-23 22:07 | ED MED RECONCILIATION SUMMARY ---
Patient: ALKA ATKINS Medication Reconciliation Report [facility] VisitID: [id number] [address] [place] [address] 25y, M Registration Date/Time: 03/23/2016 Weight: 72.5 kg Height/Length: 71 in. BMI: 22.3 ALLERGIES: No Known Drug Allergy The patient's Home Medications are listed below: STOP TAKING THE FOLLOWING MEDICATIONS: Bactrim DS Oral CONTINUE TAKING THE FOLLOWING MEDICATIONS: Tramadol HCL Oral The source(s) of the original Home Medication information: Not obtained. The following Medications were given to the patient in the Emergency Department: Clindamycin [IVPB] IVPB bolus 0, then 600 mg 100 mL/hr, administered: 03/23/2016 9:41:00 AM The following Medications were prescribed to the patient: Bactroban 2% ointment: apply small amount to affected area three times daily until symptoms better. Dispense twenty-two (22) grams. No refills. Substitution is permissible. -- Luigi Pang Dr. Clindamycin 300 mg: take 1 capsule orally every 8 hours for 7 days. No refill. -- Luigi Pang Dr.
--- NOTE | 2016-03-23 22:07 | ED MED RECONCILIATION SUMMARY ---
Patient: ALKA ATKINS Medication Reconciliation Report [facility] VisitID: [id number] [address] [place] [address] 25y, M Registration Date/Time: 03/23/2016 Weight: 72.5 kg Height/Length: 71 in. BMI: 22.3 ALLERGIES: No Known Drug Allergy The patient's Home Medications are listed below: STOP TAKING THE FOLLOWING MEDICATIONS: Bactrim DS Oral CONTINUE TAKING THE FOLLOWING MEDICATIONS: Tramadol HCL Oral The source(s) of the original Home Medication information: Not obtained. The following Medications were given to the patient in the Emergency Department: Clindamycin [IVPB] IVPB bolus 0, then 600 mg 100 mL/hr, administered: 03/23/2016 9:41:00 AM The following Medications were prescribed to the patient: Bactroban 2% ointment: apply small amount to affected area three times daily until symptoms better. Dispense twenty-two (22) grams. No refills. Substitution is permissible. -- Luigi Pang Dr. Clindamycin 300 mg: take 1 capsule orally every 8 hours for 7 days. No refill. -- Luigi Pang Dr.
--- NOTE | 2016-03-23 22:07 | ED MAR SUMMARY ---
..... Medication Administration Record [facility] [address] [place] [address] Patient: ALKA ATKINS Visit ID: [id number] 25y, M Weight: 72.5 kg Height/Length: 71 in BMI: 22.3 ALLERGIES: No Known Drug Allergy Start 09:41 03/23/2016 Aida Rangel,, Stop 10:27 03/23/2016 Zurdo Phelps R.N. Medication Administered: CLINDAMYCIN [IVPB], Dose: 600 mg IVPB over 30 minute(s), Rate: 100 mL/hr, Dispensed: 50 mL bag, Site: #1 left AC. Medication Ordered: Clindamycin IV 600 mg/50mL (NOW).
--- NOTE | 2016-03-23 22:07 | ED MAR SUMMARY ---
..... Medication Administration Record [facility] [address] [place] [address] Patient: ALKA ATKINS Visit ID: [id number] 25y, M Weight: 72.5 kg Height/Length: 71 in BMI: 22.3 ALLERGIES: No Known Drug Allergy Start 09:41 03/23/2016 Aida Rangel,, Stop 10:27 03/23/2016 Zurdo Phelps R.N. Medication Administered: CLINDAMYCIN [IVPB], Dose: 600 mg IVPB over 30 minute(s), Rate: 100 mL/hr, Dispensed: 50 mL bag, Site: #1 left AC. Medication Ordered: Clindamycin IV 600 mg/50mL (NOW).
== END 2016-03-23 11:00 | disposition home or self-care (01) ==
LOC: ED SRH 08:42
DX: L03.113 Cellulitis of right upper limb (principal); R94.5 Abnormal results of liver function studies; F17.210 Nicotine dependence, cigarettes, uncomplicated
CPT/HCPCS: 90100; 95059

== ENCOUNTER 2016-04-07 12:45 | Outpatient (CLI) | payer OTHER ==
--- NOTE | 2016-04-07 13:04 | DIAGNOSTIC IMAGING REPORT ---
PROCEDURE: XR HAND 3 OR 4 VIEWS - RIGHT INDICATION: CELLULITIS OF R HAND TECHNIQUE: Four views. COMPARISON: Right hand films 03/18/2016 FINDINGS: Increasing soft tissue swelling over the dorsum of the right hand. Osseous structures and joint spaces are normal. IMPRESSION: 1. Soft tissue injury and increasing swelling over the dorsum of the right hand. 2. Osseous structures normal.
== END 2016-04-07 23:00 ==
LOC: XR SRH 12:45
DX: M79.89 Other specified soft tissue disorders (principal)